=== PATIENT | female | born 1990 | race Caucasian/White ===

== ENCOUNTER 2016-12-29 00:59 | Emergency (ER) | payer SELFPAY ==
[~2016-12-29] VITALS: Ht 160 cm; Wt 56.2 kg
[2016-12-29 00:59] VITALS: BP 125/90; PULSE 107; RESP 14; TEMP 98.9; O2SAT 99
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
--- NOTE | 2016-12-29 01:05 | NUR ---
ER at bedside examining patient.
[2016-12-29] MEDS ORDERED: HYDROcodone/ACETAMIN 5-325 MG TAB (NORCO/ VICODIN) PO ONE (01:15)
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
--- NOTE | 2016-12-29 01:30 | NUR ---
Patient ambulated to bathroom for urine specimen collection.
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
[2016-12-29] MEDS ORDERED: OXYCODONE/ACETAMINOPHEN 5-325 TABLET PO ONE (02:45)
[2016-12-29 02:50] VITALS: BP 120/85; PULSE 90; RESP 14; TEMP 98.9; O2SAT 99
--- NOTE | 2016-12-29 02:50 | NUR ---
Patient given written and verbal discharge instructions and verbalizes understanding. ER MD discussed with patient the results and treatment provided. Patient in stable condition. ID arm band removed. Rx of ibuprofen and percocet given. Patient educated on pain management and to follow up with PMD. Pain Scale 2/10. Opportunity for questions provided and answered.
[2016-12-29] MEDS ORDERED: OXYCODONE/ACETAMINOPHEN 5-325 TABLET ONE (02:58)
== END 2016-12-29 02:50 | disposition home or self-care (01) ==
LOC: SED 00:59
DX: S01.81XA Laceration without foreign body of other part of head, initial encounter (principal); S01.21XA Laceration without foreign body of nose, initial encounter; Y04.0XXA Assault by unarmed brawl or fight, initial encounter; Y93.89 Activity, other specified; Y92.89 Other specified places as the place of occurrence of the external cause; Y99.8 Other external cause status
CPT/HCPCS: 70450-TC; 70486-TC; 81025; 99284